=== PATIENT | female | born 1995 | race Caucasian/White ===

== ENCOUNTER 2019-04-24 08:01 | Inpatient (IN) | payer MEDICAID ==
[2019-04-24] MEDS ORDERED: OXYTOCIN/NORMAL SALINE 20 UNIT/1,000 ML RTUINJ IV PRN ×2 (08:43→19:13)
[2019-04-24 09:09] LABS: URINE AMPHETAMINES SCREEN NEGATIVE; URINE BARBITURATES SCREEN NEGATIVE; URINE BENZODIAZEPINES SCREEN NEGATIVE; URINE COCAINE SCREEN NEGATIVE; URINE MARIJUANA (THC) SCREEN NEGATIVE; URINE METHADONE SCREEN NEGATIVE; URINE PHENCYCLIDINE SCREEN NEGATIVE
[2019-04-24 09:29] LABS: ABSOLUTE EOSINOPHILS # (AUTO) 0.2 10^3/uL (0.0-0.6); ABSOLUTE LYMPHOCYTES (AUTO) 1.5 10^3/uL (0.5-4.7); ABSOLUTE MONOCYTES (AUTO) 0.5 10^3/uL (0.1-1.4); ABSOLUTE NEUT (AUTO) 6.1 10^3/uL (1.7-8.2); BASOPHILS % (AUTO) 0.4 % (0-2); EOSINOPHILS % (AUTO) 2.2 % (0-6); HEMATOCRIT 32.1 % (36.0-47.0); HEMOGLOBIN 11.1 g/dL (12.0-15.5); LYMPHOCYTES % (AUTO) 17.8 % (13-45); MEAN CORPUSCULAR HEMOGLOBIN 28.2 pg (27.0-33.4); MEAN CORPUSCULAR HGB CONC 34.4 g/dL (32.0-36.0); MEAN CORPUSCULAR VOLUME 82 fl (80-97); MONOCYTES % (AUTO) 6.4 % (3-13); PLATELET COUNT 358 10^3/uL (150-450); RED BLOOD COUNT 3.91 10^6/uL (3.72-5.28); RED CELL DISTRIBUTION WIDTH 20.2 % (11.5-14.0); SEGMENTED NEUTROPHILS % (AUTO) 73.2 % (42-78); TOTAL CELLS COUNTED % (AUTO) 100 %; WHITE BLOOD COUNT 8.3 10^3/uL (4.0-10.5)
--- NOTE | 2019-04-24 09:47 | Admission Physical ---
Datetime Report Generated by CPN: 04/24/2019 09:46 CURRENT ADMISSION Hx Assessment: The History has been Reviewed and is Current Chief Complaint: Scheduled Induction of Labor Indication for Induction: Post Dates Admit Impression : Postterm, Intrauterine Admit Plan: Admit to Unit; Initiate Labor Induction Protocol ALLERGIES Medication Allergies: No Medication Allergies: No Known Allergies (04/24/2019) Latex: No Latex Allergies Food Allergies: none Environmental Allergies: none OBSTETRICAL HISTORY EDC: 04/17/2019 00:00 : 2 Para: 1 Term: 1 Gestational Diabetes: No Rh Sensitization: No Incompetent Cervix: No ROMANA: No Infertility: No ART Treatment: No Uterine Anomaly: No IUGR: No Hx Previous C/S: No Macrosomia: No Hx Loss/Stillborn: No PIH: No Hx : No Placenta Previa/Abruption: No Depression/PP Depression: No PTL/PROM: No Post Hemorrhage: No Current Procedures: Ultrasound Obstetrical History Comments: G1 - 41.1 wk male infant, IOL for postdates, vaginal, no complications G2 - current, IOL for postdates, no complications SEE RECORDS Alcohol: No Marijuana : No Cocaine: No Other Illicit Drugs: No Cigarettes: Never Smoker. [id number] MEDICAL HISTORY Diabetes: No Blood Transfusion: No Pulmonary Disease (Asthma, TB): No Breast Disease: No Hypertension: No Application Helper Surgery: No Heart Disease: No Hosp/Surgery: No Autoimmune Disorder: No Anesthetic Complications: No Kidney Disease: No Abnormal Pap Smear: No Neuro/Epilepsy: No Psychiatric Disorders: No Other Medical Diseases: No Hepatitis/Liver Disease: No Significant Family History: No Varicosities/Phlebitis: No Trauma/Violence : No Thyroid Dysfunction: No INFECTIOUS HISTORY Gonorrhea: Yes Genital Herpes: No Chlamydia: No Tuberculosis: No Syphilis: No Hepatitis: No HIV/AIDS Exposure: No Rash or Viral Illness: No HPV: No Infectious History Comments: Gonorrhea during current , treated, LARA neg PHYSICAL EXAM General: Normal Heart: Normal Lungs: Normal Abdomen: Normal Genitourinary Exam: Normal Extremities: Normal Pelvic Type: Adequate Physical Exam Comments: pelvis proven to 7lbs 1oz Vital Signs: Reviewed; Within Normal Limits VAGINAL EXAM Dilatation: 3 Effacement: 50 Station: -1 Contraction Comments: irregular MEMBRANES Membranes: Intact FETUS A EGA: 41.0 Monitoring: External US FHR- Baseline: 140 Variability: Moderate 6-25bpm Accelerations: 15X15 Decelerations: Variable Presentation: Vertex Admit Comment: 23yo @ 41wga into L_D for IOL secondary to post dates . Pt. is O pos, RI, GBS neg with significant hx of recurrent e-coli UTI this as well as positive gonorrhea in 3rd trim with negative LARA. [place] from [place] at 35w and is dated by 15w sono. Medical hx also significant for brother with pulmonary HTN and cardiac defects who at age 18. Pt was supposed to have echo done but failed to present to appt twice per records, peds alerted on admission. Pt also supposed to be on macrobid for prophylaxis but on several occasions was not taking medication as ordered. Plan is to start pitocin at this time. Dr. Mendiola is the OB manager clinical applications and aware. PLANS FOR LABOR AND DELIVERY Labor and Delivery: None Pain Management: None Feeding Preference: Breast Benefit of Breast Feed Discussed: Yes Circumcision: Yes INFORMED CONSENT Assignment: Lorenza Mendiola MD Signature: with User ID: [email or web address] : with User ID: [email or web address]
[2019-04-24 10:07] LABS: ANISOCYTOSIS SLIGHT; PLATELET COMMENT ADEQUATE; POIKILOCYTOSIS SLIGHT; POLYCHROMASIA SLIGHT; TEAR DROP CELLS SLIGHT
[2019-04-24] MEDS ORDERED: OXYTOCIN 10 UNIT/ML VIAL ONE (12:41)
[2019-04-24] MEDS ORDERED: MISOPROSTOL 0.2 MG TABLET ONE (12:41)
[2019-04-24] MEDS ORDERED: LIDOCAINE 1% INJ-PF (10 MG/ML) 30 ML SDV ONE (12:42)
[2019-04-24] MEDS ORDERED: OXYTOCIN/NORMAL SALINE 20 UNIT/1,000 ML RTUINJ ONE (12:42)
[2019-04-24] MEDS ORDERED: DIBUCAINE 1% OINTMENT 28 GM TP PRN (19:13)
[2019-04-24] MEDS ORDERED: PROMETHAZINE HCL INJ 25 MG/1 ML VIAL IV PRN (19:13)
[2019-04-24] MEDS ORDERED: GLYCERIN/WITCH HAZEL LEAF 1 EACH MED..WIPE TP PRN (19:13)
[2019-04-24] MEDS ORDERED: DIPH/PERTUSS(ACELL)/TETANUS VAC/PF 0.5 ML SYR (>=10YO) IM PRN (19:13)
[2019-04-24] MEDS ORDERED: PSEUDOEPHEDRINE HCL 30 MG TABLET PO PRN (19:13)
[2019-04-24] MEDS ORDERED: ACETAMINOPHEN 650 MG SUPP.RECT PR PRN (19:13)
[2019-04-24] MEDS ORDERED: ZOLPIDEM TARTRATE 5 MG TABLET PO PRN (19:13)
[2019-04-24] MEDS ORDERED: ACETAMINOPHEN WITH CODEINE #3 TABLET PO PRN ×2 (19:13)
[2019-04-24] MEDS ORDERED: DIPHENHYDRAMINE HCL 25 MG CAPSULE PO PRN (19:13)
[2019-04-24] MEDS ORDERED: MAGNESIUM HYDROXIDE SUSP 30 ML UDCUP PO PRN (19:13)
[2019-04-24] MEDS ORDERED: BENZOCAINE/MENTHOL AEROSOL SPRAY 56 ML TOP PRN (19:13)
[2019-04-24] MEDS ORDERED: NA PHOS,M-B/NA PHOS,DI-BA (ADULT) 133 ML ENEMA PR PRN (19:13)
[2019-04-24] MEDS ORDERED: PROMETHAZINE HCL 25 MG SUPP.RECT PR PRN (19:13)
[2019-04-24] MEDS ORDERED: PROMETHAZINE HCL 25 MG TABLET PO PRN (19:13)
[2019-04-24] MEDS ORDERED: MEASLES,MUMPS&RUBELLA VACC/PF 0.5 ML VIAL SUBCUT PRN (19:13)
[2019-04-24] MEDS ORDERED: IBUPROFEN 800 MG TABLET PO SCH (19:30)
[2019-04-24] MEDS ORDERED: FERROUS SULFATE 325 MG TABLET PO ONE (19:58)
[2019-04-24] MEDS ORDERED: DOCUSATE SODIUM 100 MG CAPSULE ONE (19:58)
--- NOTE | 2019-04-24 21:05 | Delivery Summary ---
Del Sum A-C Datetime Report Generated by CPN: 04/24/2019 21:05 DELIVERY PERSONNEL DELIVERY PERSONNEL: [id number] Delivery Doctor:: Lorenza Mendiola MD Labor and Delivery Nurse:: Mi Monk RNstave inspector Nurse:: Rosario Barnett RN Application Support Technician/EMERGENCY ROOM SPECIALIST: Ranjana Mendoza CST Application Support Technician/EMERGENCY ROOM SPECIALIST: Maria E Kennedy CST Additional Personnel: : Rosette Arredondo RN MATERNAL INFORMATION Delivery Anesthesia: None Medications After Delivery: Pitocin Drip 20 Units/1000ml NSS Meds After Delivery Comment: 20 units in 1000mL NS Estimated Blood Loss (ml): 50 Delivery QBL: 50 Maternal Complications: None Provider Comments: Called to patients room as she was complete/Complete and +3 station. on my arrival and she pushed once delivering a viable boy . After the head, the shoulders and rest of the body followed easily. The cord clamping was delayed 30 sec since infant vigorous. After clamping, baby to Mother's chest. BOth stable. LABOR SUMMARY EDC: 04/17/2019 00:00 Attempted: No Labor Anesthesia: None LABOR INFORMATION Reason for Induction: Post Dates Onset of Labor: 04/24/2019 14:37 Complete Dilatation: 04/24/2019 18:28 Oxytocin: Induction Group B Beta Strep: NEGATIVE Antibiotics # of Doses: n/a Steroids Given: None Reason Steroids Not Administered: Not Applicable MEMBRANES Membranes Rupture Method: Artificial Rupture of Membranes: 04/24/2019 14:37 Length of Rupture (hr): 4.33 Amniotic Fluid Color: Clear Amniotic Fluid Amount: Moderate Amniotic Fluid Odor: Normal STAGES OF LABOR Stage 1 hr: 3 Stage 1 min: 51 Stage 2 hr: 0 Stage 2 min: 29 Stage 3 hr: 0 Stage 3 min: 4 Total Time in Labor hr: 4 Total Time in Labor min: 24 VAGINAL DELIVERY Episiotomy: None Laceration Extension #1: First Degree Other Laceration: First degree left labial laceration repaired with 3-0 chromic in a running fashion Laceration Repair: Yes Laceration Repair Note: As above Sponge Count Correct: Yes Sharps Count Correct: Yes CSECTION DELIVERY Primary Indication: N/A Secondary Indication: N/A CSection Incidence: N/A Labor: N/A Elective: N/A CSection Incision: N/A BABY A INFORMATION Infant Delivery Date/Time: 04/24/2019 18:57 Method of Delivery: Vaginal Nurse Controlled Delivery: No Born in Route : No : N/A Forceps: N/A Vacuum Extraction: N/A Shoulder Dystocia : No PRESENTATION/POSITION BABY A Presentation: Cephalic Cephalic Presentation: Vertex Vertex Position: Right Occipital Anterior Breech Presentation: N/A PLACENTA INFORMATION BABY A Placenta Delivery Time : 04/24/2019 19:01 Placenta Method of Delivery: Spontaneous Placenta Status: Delivered SCORES BABY A Heart Rate 1 min: >100 bpm Resp Effort 1 min: Good Cry Reflex Irritability 1 min: Cough or Sneeze or Pulls Away Muscle Tone 1 min: Active Motion Color 1 min: Blue/Pale SCORE 1 MIN: 8 Heart Rate 5 min: >100 bpm Resp Effort 5 min: Good Cry Reflex Irritability 5 min: Cough or Sneeze or Pulls Away Muscle Tone 5 min: Active Motion Color 5 min: Body Tusculum, Extremities Blue SCORE 5 MIN: 9 INFORMATION BABY A Gestational Age at Delivery: 41.0 Gestational Status: Late Term- 41- 41.6 Weeks Infant Outcome : Liveborn Condition : Stable Sex: Male IDENTIFICATION BABY A Verification Date/Time: 04/24/2019 19:26 ID Band Number: [id number] Mother's Name Verified: Yes Infant RN Verifying : Kurt Monk, JADON Additional Verifying Personnel: Fabrizio Barnett, RN WEIGHT/LENGTH BABY A Infant Birthweight (gm): 3659 Weight (lb): 8 Infant Weight (oz): 1 Length (in): 20.00 Length (cm): 50.80 CORD INFORMATION BABY A No. Cord Vessels: 3 Nuchal Cord : N/A Cord Blood Taken: Yes-For Eval (Mom's Blood Type - or O+) Infant Suction: Mouth ASSESSMENT BABY A Skin to Skin: Yes SIGNATURES Signature: with User ID: Alonso : with User ID: [email or web address]
[2019-04-24] MEDS ORDERED: IBUPROFEN 800 MG TABLET PO ONE (23:00)
[2019-04-24] MEDS: FAMOTIDINE 20 MG TABLET PO SCH (23:07)
[2019-04-25] MEDS: IBUPROFEN 800 MG TABLET PO SCH ×3 (06:32→21:37)
[2019-04-25 06:55] LABS: HEMOGLOBIN 10.3 g/dL (12.0-15.5); MEAN CORPUSCULAR HEMOGLOBIN 27.6 pg (27.0-33.4); MEAN CORPUSCULAR HGB CONC 33.3 g/dL (32.0-36.0); MEAN CORPUSCULAR VOLUME 83 fl (80-97); PLATELET COUNT 310 10^3/uL (150-450); RED BLOOD COUNT 3.74 10^6/uL (3.72-5.28); RED CELL DISTRIBUTION WIDTH 20.6 % (11.5-14.0); WHITE BLOOD COUNT 13.3 10^3/uL (4.0-10.5)
[2019-04-25] MEDS: SENNOSIDES/DOCUSATE 8.6-50 MG 1 EACH TABLET PO SCH (09:54)
[2019-04-25] MEDS: DOCUSATE SODIUM 100 MG CAPSULE PO SCH ×2 (09:54→17:23)
[2019-04-25] MEDS: PRENATAL VITAMIN W DHA CAPSULE PO SCH (09:54)
[2019-04-25] MEDS: FAMOTIDINE 20 MG TABLET PO SCH ×2 (09:54→21:36)
[2019-04-25] MEDS: FERROUS SULFATE 325 MG TABLET PO SCH ×2 (09:54→17:24)
--- NOTE | 2019-04-25 10:35 | PDOC PROGRESS REPORT ---
Subjective-OB Progress Note for:: 04/25/19 Subjective: Pt doing well, no concerns. Reports light bleeding, reg diet and voiding without difficulty. Physical Exam (OB) Vital Signs: Temp Pulse Resp BP Pulse Ox 98.1 F 68 22 H 114/56 L 100 04/25/19 08:04 04/25/19 08:04 04/25/19 08:04 04/25/19 08:04 04/25/19 08:04 Intake & Output 04/24/19 04/25/19 04/26/19 06:59 06:59 06:59 Weight 82.7 kg - PIH/Pre-Eclampsia Clonus: Negative Headache: Absent Epigastric Pain: No Visual Changes: No - Lochia Lochia Amount: Small 10-25 ml Lochia Color: Rubra/Red - Abdomen Description: Soft Hernia Present: No Fundal Description: Firm Fundal Height: u/u - u/2 Objective-Diagnostic Laboratory: 04/25/19 06:22 04/25/19 06:22 WBC 13.3 H RBC 3.74 Hgb 10.3 L Hct 31.0 L MCV 83 MCH 27.6 MCHC 33.3 RDW 20.6 H Plt Count 310 Assessment and Plan(PN) - Assessment and Plan (1) Vaginal delivery Is this a current diagnosis for this admission?: Yes (2) Laceration, obstetrical, first degree Is this a current diagnosis for this admission?: Yes (3) Encounter for induction of labor Is this a current diagnosis for this admission?: Yes - Time Spent with Patient Time with patient: Less than 15 minutes Medications reviewed and adjusted accordingly: Yes - Disposition Anticipated Discharge: Home Within: within 24 hours
[2019-04-26] MEDS: IBUPROFEN 800 MG TABLET PO SCH (05:17)
[2019-04-26 08:57] VITALS: BP 114/56
[2019-04-26] MEDS: DOCUSATE SODIUM 100 MG CAPSULE PO SCH (09:39)
[2019-04-26] MEDS: SENNOSIDES/DOCUSATE 8.6-50 MG 1 EACH TABLET PO SCH (09:39)
[2019-04-26] MEDS: PRENATAL VITAMIN W DHA CAPSULE PO SCH (09:39)
[2019-04-26] MEDS: FAMOTIDINE 20 MG TABLET PO SCH (09:39)
[2019-04-26] MEDS: FERROUS SULFATE 325 MG TABLET PO SCH (09:39)
--- NOTE | 2019-04-26 13:34 | PDOC DISCHARGE SUMMARY ---
Impression - Admit/DC Date/PCP Admission Date/Primary Care Provider: 04/24/19 08:01 Discharge Date: 04/26/19 - Discharge Diagnosis (2) Encounter for induction of labor Is this a current diagnosis for this admission?: Yes (3) Laceration, obstetrical, first degree Is this a current diagnosis for this admission?: Yes (4) Vaginal delivery Is this a current diagnosis for this admission?: Yes - Additional Information Discharge Diet: Regular Discharge Activity: Balance Activity w/Rest, Pelvic Rest Prescriptions: Ibuprofen [Motrin 800 mg Tablet] 800 mg PO Q8HP PRN #90 tablet PRN Reason: Home Medications: Ibuprofen [Motrin 800 mg Tablet] 800 mg PO Q8HP PRN #90 tablet 04/26/19 Vit/Dha [ Multi + Dha Capsule] 1 cap PO DAILY capsule 04/26/19 HPI Gestational Age: 41 Reason(s) for Admission: Induction of Labor Procedures: NST Intrapartum Procedure(s): Spontaneous Vaginal Delivery Complication(s): Laceration-Labial Results Laboratory Results: WBC 13.3 10^3/uL (4.0-10.5) H 04/25/19 06:22 RBC 3.74 10^6/uL (3.72-5.28) 04/25/19 06:22 Hgb 10.3 g/dL (12.0-15.5) L 04/25/19 06:22 Hct 31.0 % (36.0-47.0) L 04/25/19 06:22 MCV 83 fl (80-97) 04/25/19 06:22 MCH 27.6 pg (27.0-33.4) 04/25/19 06:22 MCHC 33.3 g/dL (32.0-36.0) 04/25/19 06:22 RDW 20.6 % (11.5-14.0) H 04/25/19 06:22 Plt Count 310 10^3/uL (150-450) 04/25/19 06:22 Lymph % (Auto) 17.8 % (13-45) 04/24/19 09:05 Yates % (Auto) 6.4 % (3-13) 04/24/19 09:05 Eos % (Auto) 2.2 % (0-6) 04/24/19 09:05 Baso % (Auto) 0.4 % (0-2) 04/24/19 09:05 Absolute Neuts (auto) 6.1 10^3/uL (1.7-8.2) 04/24/19 09:05 Absolute Lymphs (auto) 1.5 10^3/uL (0.5-4.7) 04/24/19 09:05 Absolute Monos (auto) 0.5 10^3/uL (0.1-1.4) 04/24/19 09:05 Absolute Eos (auto) 0.2 10^3/uL (0.0-0.6) 04/24/19 09:05 Absolute Basos (auto) 0.0 10^3/uL (0.0-0.2) 04/24/19 09:05 Seg Neutrophils % 73.2 % (42-78) 04/24/19 09:05 Platelet Comment ADEQUATE 04/24/19 09:05 Polychromasia SLIGHT 04/24/19 09:05 Poikilocytosis SLIGHT 04/24/19 09:05 Anisocytosis SLIGHT 04/24/19 09:05 Tear Drop Cells SLIGHT 04/24/19 09:05 Urine Opiates Screen NEGATIVE 04/24/19 08:14 Urine Methadone Screen NEGATIVE 04/24/19 08:14 Ur Barbiturates Screen NEGATIVE 04/24/19 08:14 Ur Phencyclidine Scrn NEGATIVE 04/24/19 08:14 Ur Amphetamines Screen NEGATIVE 04/24/19 08:14 U Benzodiazepines Scrn NEGATIVE 04/24/19 08:14 Urine Cocaine Screen NEGATIVE 04/24/19 08:14 U Marijuana (THC) Screen NEGATIVE 04/24/19 08:14 RPR NONREACTIVE (NONREACTIVE) 04/24/19 09:05 Blood Type O POSITIVE 04/24/19 09:05 Antibody Screen NEGATIVE 04/24/19 09:05 Plan Plan of Treatment: follow up in 4 weeks at [facility] for post check
== END 2019-04-26 15:00 | disposition home or self-care (01) | DRG 807 ==
LOC: 2N 08:01 → LR 08:33 → 2S 21:45
PROVIDERS: ADMIT Obstetrics & Gynecology; ATTEND Obstetrics & Gynecology
PROC: 10E0XZZ Delivery of Products of Conception, External Approach (ICD-10-PCS; principal; 2019-04-24)
PROC: 0HQ9XZZ Repair Perineum Skin, External Approach (ICD-10-PCS; 2019-04-24)
PROC: 3E033VJ Introduction of Other Hormone into Peripheral Vein, Percutaneous Approach (ICD-10-PCS; 2019-04-24)
PROC: 10907ZC Drainage of Amniotic Fluid, Therapeutic from Products of Conception, Via Natural or Artificial Opening (ICD-10-PCS; 2019-04-24)
PROC: 4A1HXCZ Monitoring of Products of Conception, Cardiac Rate, External Approach (ICD-10-PCS; 2019-04-24)
DX: O48.0 Post-term pregnancy (principal); Z37.0 Single live birth; O70.0 First degree perineal laceration during delivery; Z3A.41 41 weeks gestation of pregnancy
CPT/HCPCS: 36415; 80307; 85025; 85027; 86592; 86850; 86900; 86901; J2590; J3490